=== PATIENT | female | born 1970 | race Two or more races ===

== ENCOUNTER 2019-03-05 11:54 | Outpatient (CLI) | payer OTHER | END 2019-03-05 15:37 | disposition home or self-care (01) | LOC: LAB 11:54 | DX: J11.1 Influenza due to unidentified influenza virus with other respiratory manifestations (principal); A49.3 Mycoplasma infection, unspecified site ==

== ENCOUNTER 2019-04-17 12:17 | Emergency (ER) | payer OTHER ==
[~2019-04-17] VITALS: Ht 167.6 cm; Wt 81.6 kg
== END 2019-04-17 16:54 | disposition home or self-care (01) ==
LOC: ER
DX: B34.9 Viral infection, unspecified (principal); J11.1 Influenza due to unidentified influenza virus with other respiratory manifestations